=== PATIENT | female | born 1955 | race Hispanic/Latino ===

== ENCOUNTER 2023-09-25 20:31 | Emergency (ER) | payer MEDICARE ==
--- OUTSIDE RECORDS SUMMARY | 2023-09-25 20:34 | XMS REPORT | Continuity of Care Document ---
Author Name Unknown Address [address] [facility]. [address] [place] [address] [facility] Address [address] [facility] [address] [place] [address] Care Team Providers Care Concrete Sculptor Name Role Phone Haylee --Daniela Attending Clinician Mayo WALLS, Nallely Attending Clinician [phone] NALLELY HUBER Attending Clinician Unavailable Payers Payer Name Policy Type Policy Number Effective Date Expirati on Date Source [facility] (MEDICARE REPLACEMENT HMO) [id number] 00:00:00 Encounters Start Date/Time End Date/Time Encounter Type Admission Type Attending Clinicians Care Facility Care Department Encounter ID Source 2022-05-25 10:23:59 Outpatient [facility] [id number] - [id number] [facility] 2022-12-08 14:30:00 2022-12-08 16:00:00 RICKI Leach [id number] [facility] 2022-05-25 10:30:00 2022-05-25 10:35:00 Immunizati on Nallely Huber [facility] [id number] 2022-05-25 08:26:04 2022-05-25 08:26:04 Outpatient NALLELY HUBER [facility] [id number] [facility] ent 2022-04-28 03:52:00 2022-04-28 03:52:[address] [facility] [id number] [facility] 2022-04-28 00:00:00 2022-04-28 00:00:[address] [facility] [id number] [facility] 2021-12-12 09:01:00 2021-12-12 09:01:[address] [facility] [id number] [facility]
[2023-09-25] MEDS ORDERED: FAMOTIDINE 20 MG/2 ML VIAL IV ONE (21:11)
[2023-09-25] MEDS ORDERED: NA CHLORIDE 0.9% 250 ML ONE (21:11)
[2023-09-25] MEDS ORDERED: NA CHLORIDE 0.9% 1,000 ML ONE (21:11)
[2023-09-25] MEDS ORDERED: PANTOPRAZOLE 40 MG INJ ONE (21:11)
[2023-09-25 21:27] LABS: Absolute Lymphocytes (CBC) 2.1 K/uL (0.7-4.9); Hematocrit 43.8 % (36.0-45.0); Lymphocytes % 28.2 % (15.3-44.8); MCV 89.7 fL (80-100); MPV 7.5 fL (7.6-11.3); Platelets 243 thou/uL (152-406); RBC Red Blood Cell Count 4.89 M/uL (3.86-4.86)
[2023-09-25 21:37] LABS: Albumin 3.9 g/dL (3.4-5.0); Bilirubin Total 0.4 mg/dL (0.2-1.0); Protein, Total 8.7 g/dL (6.4-8.2)
--- NOTE | 2023-09-25 22:52 | RAD REPORT ---
EXAM DESCRIPTION: CT - Abdomen Pelvis W Contrast - 09/25/2023 10:09 pm CLINICAL HISTORY: anal rectal bleeding, eval for mass COMPARISON: No comparisons TECHNIQUE: Thin cut axial CT imaging of the abdomen and pelvis was performed following intravenous a dministration of 100 mL Isovue 370. Multiplanar reformats were generated and reviewed. All CT scans are performed using dose optimization technique as appropriate and may include automated exposure control or mA/KV adjustment according to patient size. FINDINGS: Motion artifact throughout the upper abdomen limits evaluation. No suspicious findings in the lung bases. The liver, spleen, adrenal glands, and pancreas show no suspicious findings. Gallbladder and biliary tree are also without suspicious finding. Symmetric renal function is seen with no hydronephrosis or suspicious renal mass. No dilated bowel loops or bowel wall thickening. No free air, free fluid or inflammatory stranding. N o hernia, mass or bulky lymphadenopathy. The urinary bladder is without significant finding. No suspicious bony findings. IMPRESSION: No acute intra-abdominal process.
--- NOTE | 2023-09-25 23:25 | EDPHYS ---
Physician Documentation [facility] Name: Saleem Colon Age: 68 yrs Sex: Female : 1955 Arrival Date: 09/25/2023 Time: 20:31 Bed 4 Private MD: ED Physician Sanjeev Weeks HPI: 09/25 20:41 This 68 yrs old Female presents to ER via Unassigned with complaints of sp4 Generalized complaint . 21:31 Is a very pleasant 60-year-old female presents with complaint of 2 episode of bright sp4 red blood per rectum at home. Patient apparently had a third episode of rectal bleeding here in ER in the bathroom. Rectal bleeding started today. Patient reported history of lower GI bleed for which she had prior colonoscopy. She reported colonoscopy revealed signs of infectious process;. Historical: - Allergies: 20:50 No Known Allergies; cm10 - PMHx: 20:50 Hypertensive disorder; Rectal bleeding; cm10 - Immunization history:: Adult Immunizations unknown. - Social history:: Smoking status: Patient denies any tobacco usage or history of. - Family history:: not pertinent. ROS: 21:30 Constitutional: Negative for fever, chills, and weight loss, positive for rectal sp4 bleeding. Positive lower abdominal pain Exam: 21:30 Constitutional: This is a well developed, well nourished patient who is awake, alert, sp4 and in no acute distress. Head/Face: Normocephalic, atraumatic. Eyes: Pupils equal round and reactive to light, extra-ocular motions intact. Lids and lashes normal. Conjunctiva and sclera are not injected. Cornea within normal limits. Periorbital areas with no swelling, redness, or edema. ENT: Nares patent. No nasal discharge, no septal abnormalities noted. Tympanic membranes are normal and external auditory canals are clear. Oropharynx with no redness, swelling, or masses, exudates, or evidence of obstruction, uvula midline. Mucous membranes moist. Neck: Trachea midline, no thyromegaly or masses palpated, and no cervical lymphadenopathy. Supple, full range of motion without nuchal rigidity, or vertebral point tenderness. Chest/axilla: Normal chest wall appearance and motion. Nontender with no deformity. No lesions are appreciated. Cardiovascular: Regular rate and rhythm with a normal S1 and S2. No gallops, murmurs, or rubs. Normal PMI, no JVD. No pulse deficits. Respiratory: Lungs have equal breath sounds bilaterally, clear to auscultation and percussion. No rales, rhonchi or wheezes noted. No increased work of breathing, no retractions or nasal flaring. Abdomen/GI: Soft, non-tender, with normal bowel sounds. No distension or tympany. No guarding or rebound. No evidence of tenderness throughout. Digital rectal exam in presence of female chargemaster analyst reveals dark red blood per rectum without mass, without fissure, fistula, without hemorrhoid. Exam consistent with lower GI bleed. Back: No spinal tenderness. No costovertebral tenderness. Skin: Warm, dry with normal turgor. Normal color with no rashes, no lesions, and no evidence of cellulitis. MS/ Extremity: Pulses equal, no cyanosis. Neurovascular intact. Full, normal range of motion. Neuro: Awake and alert, GCS 15, oriented to person, place, time, and situation. Cranial nerves II-XII grossly intact. Motor strength 5/5 in all extremities. Sensory grossly intact. Psych: Awake, alert, with orientation to person, place and time. Behavior, mood, and affect are within normal limits Vital Signs: 20:49 BP 133 / 78; Pulse 73; Resp 16; Temp 97.3; Pulse Ox 96% on R/A; Weight 63.05 kg; Height cm10 5 ft. 1 in. ; Pain 10/24; 21:00 BP 133 / 71; Pulse 67; Resp 17 S; Pulse Ox 98% on R/A; jw7 22:00 BP 147 / 82; Pulse 67; Resp 16 S; Pulse Ox 97% on R/A; jw7 23:00 BP 127 / 63; Pulse 67; Resp 16 S; Pulse Ox 96% on R/A; jw7 09/26 00:00 BP 119 / 56; Pulse 68; Resp 16 S; Pulse Ox 96% on R/A; jw7 00:45 BP 149 / 73; Pulse 68; Resp 17 S; Pulse Ox 97% on R/A; jw7 09/25 20:49 Body Mass Index 26.26 (63.05 kg, 154.94 cm) cm10 09/25 20:49 Pain Scale: Adult cm10 MDM: 09/25 21:19 Patient medically screened. sp4 23:24 Differential Diagnosis altered mental status, sepsis, flu. Data reviewed: vital signs, sp4 nurses notes, old medical records, lab test result(s), radiologic studies, CT scan. ED course: CT today is normal, patient warrants admission for active GI bleeding , possibly lower GI.. 09/25 20:44 Order name: CBC with Diff; Complete Time: 21:48 sp4 09/25 20:44 Order name: CMP; Complete Time: 21:48 sp4 09/25 20:44 Order name: Lipase; Complete Time: 21:48 sp4 09/25 20:45 Order name: Type And Screen sp4 09/25 20:45 Order name: COVID-19 SARS RT PCR; Complete Time: 23:03 sp4 09/25 20:44 Order name: CT Abd/Pelvis - IV Contrast Only; Complete Time: 23:03 sp4 09/25 20:44 Order name: IV Saline Lock; Complete Time: 21:11 sp4 09/25 20:44 Order name: Labs collected and sent; Complete Time: 21:11 sp4 Administered Medications: 21:11 Drug: Famotidine IVP 20 mg IVP once; dilute with 10 mL 0.9% NaCl; give over 2 minutes lg3 Route: IVP; Site: right antecubital; 21:14 Follow up: Response: No adverse reaction lg3 21:11 Drug: Pantoprazole IVP 80 mg IVP once Route: IVP; Site: right antecubital; lg3 21:14 Follow up: Response: No adverse reaction lg3 21:11 Drug: Pantoprazole IV 8 mg/hr IV at 25 ml/hr continuous; (Standard dilution is 80 mg in lg3 250 mL NS) Route: IV; Rate: 25 ml/hr; Site: right antecubital; 09/26 01:08 Follow up: Response: No adverse reaction; IV Status: Infusion continued upon transfer; jw7 IV Intake: 100ml 09/25 21:11 Drug: NS 0.9% IV 1000 ml IV at 125 ml/hr continuous Route: IV; Rate: 125 ml/hr; Site: lg3 right antecubital; 09/26 01:08 Follow up: Response: No adverse reaction; IV Status: Infusion continued upon transfer; jw7 IV Intake: 500ml Disposition Summary: 09/25/23 23:24 Transfer Ordered Notes: Transfer Location: [facility] sp4 Reason: Higher level of care sp4 Condition: Stable sp4 Problem: new sp4 Symptoms: have improved sp4 Accepting Physician: [facility] accepting hospitalist (09/26/23 01:08) jw7 Diagnosis - GI Bleed/ Gastrointestinal hemorrhage, unspecified sp4 - Acute lower GI bleed sp4 Forms: - Medication Reconciliation Form sp4 - SBAR form sp4 Signatures: Dispatcher [employer] EDMS Luiza Junior RN RN lg3 Nadeen Dixon RN RN jw7 Sanjeev Weeks MD MD sp4 Suad Daniel RN RN cm10 Corrections: (The following items were deleted from the chart) 01:08 09/25 23:24 [facility] accepting hospitalist sp4 jw7
--- NOTE | 2023-09-25 23:25 | ER ---
Nurse's Notes [facility] Name: Saleem Colon Age: 68 yrs Sex: Female : 1955 Arrival Date: 09/25/2023 Time: 20:31 Bed 4 Private MD: Diagnosis: GI Bleed/ Gastrointestinal hemorrhage, unspecified;Acute lower GI bleed Presentation: 09/25 20:49 Chief complaint: Patient states: Rectal bleeding onset last night. pt states having 2 cm10 episodes today. Coronavirus screen: Vaccine status: Patient reports receiving the 2nd dose of the covid vaccine. Client denies travel out of the [place] in the last 14 days. Ebola Screen: Patient denies travel to an Ebola-affected area in the 21 days before illness onset. No symptoms or risks identified at this time. Initial Sepsis Screen: Does the patient meet any 2 criteria? No. Patient's initial sepsis screen is negative. Does the patient have a suspected source of infection? No. Patient's initial sepsis screen is negative. Risk Assessment: Do you want to hurt yourself or someone else? Patient reports no desire to harm self or others. Onset of symptoms was September 25, 2023. 20:49 Method Of Arrival: Ambulatory cm10 20:49 Acuity: DANITA 3 cm10 Historical: - Allergies: 20:50 No Known Allergies; cm10 - PMHx: 20:50 Hypertensive disorder; Rectal bleeding; cm10 - Immunization history:: Adult Immunizations unknown. - Social history:: Smoking status: Patient denies any tobacco usage or history of. - Family history:: not pertinent. Screenin:12 [facility] ED Fall Risk Assessment (Adult) History of falling in the last 3 months, lg3 including since admission No falls in past 3 months (0 pts). Abuse screen: Denies threats or abuse. Denies injuries from another. Nutritional screening: No deficits noted. Tuberculosis screening: No symptoms or risk factors identified. Assessment: 21:12 General: Appears in no apparent distress. comfortable, Behavior is calm, cooperative. lg3 Pain: Denies pain. Neuro: No deficits noted. [place] Agitation-Sedation Scale (RASS): 0 - Alert and Calm Level of Consciousness is awake, alert, obeys commands, Oriented to person, place, time, situation. Cardiovascular: No deficits noted. Denies chest pain, shortness of breath, Capillary refill < 3 seconds Clubbing of nail beds is absent JVD is absent Patient's skin is warm and dry. Respiratory: No deficits noted. Airway is patent Respiratory effort is even, unlabored, Respiratory pattern is regular, symmetrical. GI: Reports rectal bleeding. : No deficits noted. No signs and/or symptoms were reported regarding the genitourinary system. EENT: No deficits noted. No signs and/or symptoms were reported regarding the EENT system. Derm: No deficits noted. No signs and/or symptoms reported regarding the dermatologic system. Skin is intact, is healthy with good turgor, Skin is dry, Skin is normal, Skin temperature is warm. Musculoskeletal: No deficits noted. No signs and/or symptoms reported regarding the musculoskeletal system. Circulation, motion, and sensation intact. Range of motion: intact in all extremities. 22:15 Reassessment: Patient appears in no apparent distress at this time. No changes from jw7 previously documented assessment. Patient and/or family updated on plan of care and expected duration. Pain level reassessed. Patient is alert, oriented x 3, equal unlabored respirations, skin warm/dry/pink. 23:15 Reassessment: Patient appears in no apparent distress at this time. No changes from jw7 previously documented assessment. Patient and/or family updated on plan of care and expected duration. Pain level reassessed. Patient is alert, oriented x 3, equal unlabored respirations, skin warm/dry/pink. 09/26 00:20 Reassessment: Patient appears in no apparent distress at this time. No changes from jw7 previously documented assessment. Patient and/or family updated on plan of care and expected duration. Pain level reassessed. Patient is alert, oriented x 3, equal unlabored respirations, skin warm/dry/pink. 00:55 Reassessment: Patient appears in no apparent distress at this time. No changes from jw7 previously documented assessment. Patient and/or family updated on plan of care and expected duration. Pain level reassessed. Patient is alert, oriented x 3, equal unlabored respirations, skin warm/dry/pink. Vital Signs: 09/25 20:49 BP 133 / 78; Pulse 73; Resp 16; Temp 97.3; Pulse Ox 96% on R/A; Weight 63.05 kg; Height cm10 5 ft. 1 in. ; Pain 10/24; 21:00 BP 133 / 71; Pulse 67; Resp 17 S; Pulse Ox 98% on R/A; jw7 22:00 BP 147 / 82; Pulse 67; Resp 16 S; Pulse Ox 97% on R/A; jw7 23:00 BP 127 / 63; Pulse 67; Resp 16 S; Pulse Ox 96% on R/A; jw7 09/26 00:00 BP 119 / 56; Pulse 68; Resp 16 S; Pulse Ox 96% on R/A; jw7 00:45 BP 149 / 73; Pulse 68; Resp 17 S; Pulse Ox 97% on R/A; jw7 09/25 20:49 Body Mass Index 26.26 (63.05 kg, 154.94 cm) cm10 09/25 20:49 Pain Scale: Adult cm10 ED Course: 09/25 20:41 Patient arrived in ED. rv1 20:41 Sanjeev Weeks MD is Attending Physician. sp4 20:50 Triage completed. cm10 20:50 Arm band placed on Patient placed in an exam room, on a stretcher. cm10 21:00 Patient has correct armband on for positive identification. Bed in low position. Call [facility] light in reach. Side rails up X2. 21:11 Luiza Junior, TITI is Primary Nurse. lg3 21:11 Inserted saline lock: 20 gauge in right antecubital area, using aseptic technique. em1 Blood collected. 21:12 Client placed on continuous cardiac and pulse oximetry monitoring. NIBP monitoring lg3 applied. terrazzo installer on. Door closed. Noise minimized. Warm blanket given. Family accompanied patient. 21:12 Patient maintains SpO2 saturation greater than 95% on room air. lg3 22:11 CT Abd/Pelvis - IV Contrast Only In Process Unspecified. EDMS 23:08 Initiated transfer with Meena at [facility]. rv1 23:47 Provided Education on: need for transfer. jw7 23:47 No provider procedures requiring assistance completed. 7 09/26 00:[address] Pierre to [facility] Rm [id number]. rv1 01:07 Patient transferred, IV remains in place. jw7 Administered Medications: 09/25 21:11 Drug: Famotidine IVP 20 mg IVP once; dilute with 10 mL 0.9% NaCl; give over 2 minutes lg3 Route: IVP; Site: right antecubital; 21:14 Follow up: Response: No adverse reaction lg3 21:11 Drug: Pantoprazole IVP 80 mg IVP once Route: IVP; Site: right antecubital; lg3 21:14 Follow up: Response: No adverse reaction lg3 21:11 Drug: Pantoprazole IV 8 mg/hr IV at 25 ml/hr continuous; (Standard dilution is 80 mg in lg3 250 mL NS) Route: IV; Rate: 25 ml/hr; Site: right antecubital; 09/26 01:08 Follow up: Response: No adverse reaction; IV Status: Infusion continued upon transfer; jw7 IV Intake: 100ml 09/25 21:11 Drug: NS 0.9% IV 1000 ml IV at 125 ml/hr continuous Route: IV; Rate: 125 ml/hr; Site: lg3 right antecubital; 09/26 01:08 Follow up: Response: No adverse reaction; IV Status: Infusion continued upon transfer; jw7 IV Intake: 500ml Medication: 09/25 23:48 VIS not applicable for this client. jw7 Intake: 09/26 01:08 IV: 100ml; Total: 100ml. jw7 01:08 IV: 500ml; Total: 600ml. jw7 Outcome: 09/25 23:24 ER care complete, transfer ordered by MD. chong 09/26 01:07 Transferred by ground EMS to [facility], [facility], [facility] Condition: stable Instructed on the need for transfer, Demonstrated understanding of instructions, 01:08 Patient left the ED. jw7 Signatures: Dispatcher [employer] Benjamin Maxwell em1 Luiza Junior RN RN lg3 Nadeen Dixon RN RN jw7 Alivia Vazquez rv1 Sanjeev Weeks MD MD sp4 Suad Daniel RN RN cm10
[2023-09-26 02:51] VITALS: TEMP 97.3
[2023-09-26 03:07] VITALS: BP 149/73; O2SAT 97
== END 2023-09-26 01:08 | disposition short-term general hospital (02) ==
LOC: ER 20:31
DX: K92.2 Gastrointestinal hemorrhage, unspecified (principal); R10.30 Lower abdominal pain, unspecified; I10 Essential (primary) hypertension; Z11.52 Encounter for screening for COVID-19
CPT/HCPCS: 85025; 36415; 86900; 86850; 86901; 83690; 80053; 87635; 74177; Q9967; C9113; J7050; J7030